=== PATIENT | female | born 1965 | race Caucasian/White ===

== ENCOUNTER → 2023-11-23 06:22 | Day surgery (SDC) | payer BC, SELFPAY | LOC: GI 06:22 | PROVIDERS: ATTENDING PHYSICIAN Internal Medicine Gastroenterology | DX: Z12.11 Encounter for screening for malignant neoplasm of colon (principal); Z86.010 Personal history of colon polyps; K64.8 Other hemorrhoids; K57.30 Diverticulosis of large intestine without perforation or abscess without bleeding; K63.5 Polyp of colon | CPT/HCPCS: 45380; 88305 ==

== ENCOUNTER → 2023-12-22 13:24 | Outpatient (REF) | payer BC, SELFPAY | LOC: WDC 13:24 | PROVIDERS: ATTENDING PHYSICIAN Obstetrics & Gynecology; FAMILY PHYSICIAN Family Medicine | DX: Z12.31 Encounter for screening mammogram for malignant neoplasm of breast (principal) | CPT/HCPCS: 77063; 77067 ==

== ENCOUNTER → 2024-07-01 17:50 | Outpatient (REF) | payer BC, SELFPAY | LOC: RAD 17:50 | PROVIDERS: ATTENDING PHYSICIAN Family Medicine | DX: M79.644 Pain in right finger(s) (principal); M79.675 Pain in left toe(s) | CPT/HCPCS: 73130; 73630 ==

== ENCOUNTER → 2025-02-04 06:40 | Outpatient (REF) | payer BC, SELFPAY | LOC: WDC 06:40 | PROVIDERS: ATTENDING PHYSICIAN Nurse Practitioner Obstetrics & Gynecology; FAMILY PHYSICIAN Family Medicine | DX: Z12.31 Encounter for screening mammogram for malignant neoplasm of breast (principal) | CPT/HCPCS: 77063; 77067 ==